=== PATIENT | female | born 1970 | race Caucasian/White ===

== ENCOUNTER → 2016-11-04 | Outpatient (CLI) | payer BC ==
[~2016-11-04] MED LIST: ASPEC81; ATOR-24
== END | disposition home or self-care (01) ==
LOC: C.RDSM 14:40
PROVIDERS: ATTEND Family Medicine
DX: M79.671 Pain in right foot (principal); S93.401A Sprain of unspecified ligament of right ankle, initial encounter; X58.XXXA Exposure to other specified factors, initial encounter

== ENCOUNTER → 2016-11-11 | Outpatient (CLI) | payer BC ==
--- NOTE | 2016-11-11 14:50 | DIAGNOSTIC IMAGING REPORT ---
RIGHT LOWER EXT JOINT WITHOUT CLINICAL HISTORY: 46 years-old Female presenting with RT ANKLE SPRAIN, W/ RT FOOT PAIN Right. TECHNIQUE: Multisequence, multiplanar MR imaging of the right ankle and foot was performed without the use of intravenous contrast. IV contrast: None. COMPARISON: Plain radiographs of the right foot from 11/04/2016. FINDINGS: Localizer images: Unremarkable. No bony edema. Articular cartilage grossly intact. Lateral tendons including the peroneal longus and brevis intact. Medial tendons including the tibialis posterior, flexor digitorum longus, and flexor hallucis longus intact. Anterior tendons including the tibialis anterior, extensor hallucis longus, and extensor digitorum longus intact. Achilles tendon intact. Plantar fascia normal. Anterior posterior tibiofibular ligaments intact. Anterior and posterior talofibular ligaments intact. Deltoid ligament intact. Forefoot normal-appearing. No acute fracture or subluxation. IMPRESSION: No significant abnormality of the ankle or foot. No evidence of acute injury. Electronically signed by: Jacques Vallejo M.D. 11/11/2016 2:49 PM Dictated Date/Time: 11/11/2016 2:37 PM
== END | disposition home or self-care (01) ==
LOC: C.MRI 13:30
PROVIDERS: ATTEND Family Medicine
DX: S93.621A Sprain of tarsometatarsal ligament of right foot, initial encounter (principal); S93.491A Sprain of other ligament of right ankle, initial encounter; X58.XXXA Exposure to other specified factors, initial encounter; M79.671 Pain in right foot

== ENCOUNTER → 2016-12-01 | Outpatient (CLI) | payer BC ==
[~2016-12-01] MED LIST changes: +GADAVIST IV PRN
--- NOTE | 2016-12-01 09:45 | DIAGNOSTIC IMAGING REPORT ---
MRI OF THE BRAIN AND PITUITARY WITHOUT A WITH GADOLINIUM CLINICAL HISTORY: History of prior pituitary tumor status post surgical resection. COMPARISON STUDY: Outside study performed November 2011, in-house study September 2005. FINDINGS: Sagittal T1, axial diffusion, axial T2, FLAIR, axial FIESTA, dynamic coronal enhanced T1 weighted images through the pituitary, and post gadolinium sagittal and axial images were acquired. The patient was administered 7 cc of intravenous Gadavist. Axial diffusion-weighted images reveal no evidence of acute or subacute infarction. There is no hydrocephalus. Proton density T2-weighted and FLAIR images reveal no significant intraparenchymal signal abnormalities. No significant pituitary tissue is visualized. There is sellar asymmetry with slight depression of the right lateral sellar floor. The optic chiasm appears normal. The infundibulum demonstrates a slight leftward tilt. Postcontrast whole brain images reveal no intra or extra-axial mass lesions. There is no pathologic enhancement. IMPRESSION: Sellar asymmetry. No evidence of recurrent pituitary neoplasm. Electronically signed by: Chris Paiz M.D. 12/01/2016 9:44 AM Dictated Date/Time: 12/01/2016 9:37 AM
== END | disposition home or self-care (01) ==
LOC: C.MRI 08:11
PROVIDERS: ATTEND Internal Medicine Endocrinology, Diabetes & Metabolism
DX: D35.2 Benign neoplasm of pituitary gland (principal)

== ENCOUNTER → 2017-01-12 | Outpatient (CLI) | payer BC ==
[~2017-01-12] MED LIST changes: -GADAVIST IV PRN
[2017-01-12 10:00] LABS: CHOLESTEROL/HDL RATIO 3.2
[2017-01-12 10:14] LABS: ESTIMATED AVERAGE GLUCOSE 111 mg/dl; HA1C FLAG Normal (Normal)
== END | disposition home or self-care (01) ==
LOC: C.LAB1850 08:16
PROVIDERS: ATTEND Internal Medicine Endocrinology, Diabetes & Metabolism
DX: E28.2 Polycystic ovarian syndrome (principal); D35.2 Benign neoplasm of pituitary gland

== ENCOUNTER → 2017-03-31 | Outpatient (CLI) | payer OTHER | END | disposition home or self-care (01) | LOC: C.LAB 11:49 | PROVIDERS: ATTEND Family Medicine | DX: R07.9 Chest pain, unspecified (principal); R06.09 Other forms of dyspnea ==